=== PATIENT | female | born 1985 | race Caucasian/White ===

== ENCOUNTER 2022-02-28 12:09 | Emergency (ER) | payer MEDICAID, SELFPAY ==
[2022-02-28 12:12] VITALS: BP 149/91; PULSE 126; RESP 20; TEMP 36.8; O2SAT 100; BMI 18.1
[2022-02-28 12:18] VITALS: BP 126/82; PULSE 124; RESP 18; TEMP 37.1; O2SAT 100; BMI 19.1
--- NOTE | 2022-02-28 12:23 | ED_ITS ---
HPI - Psych General Chief Complaint: Psychiatric Symptoms Stated Complaint: Crisis Time Seen by Provider: 02/28/22 12:18 Source: patient Mode of arrival: ambulatory Limitations: no limitations History of Present Illness HPI Narrative: 37-year-old female with no known medical history here with reports of suicidal thoughts. Patient tells me she has a plan to starve herself. She has tried this before in the past. She tells me that she last ate and drank yesterday. She reports multiple recent triggers but is not forthcoming to tell me with these might be. No homicidal ideations. No auditory or visual hallucinations. No history of substance use. 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 This has stopped her from getting help previously Related Data Allergies Allergy/AdvReac Type Severity Reaction Status Date / Time peach Allergy Unknown SWELLING Verified 02/28/22 12:15 Review of Systems Review of Systems: Yes all other systems are reviewed and are negative Constitutional: Constitutional: Reports no additional constitutional complaints, Denies body ache(s), Denies chills, Denies fever(s), Denies headache(s) and Denies weakness Eyes: Eyes: Reports no additional eye complaints and Denies change in vision ENT: Reports system reviewed and no additional complaints, except as documented, Denies dizziness, Denies headache(s), Denies nasal congestion, Denies nasal discharge and Denies neck pain Cardiovascular: Cardiovascular: Reports no additional cardiovascular complaints, Denies chest pain, Denies leg edema and Denies dyspnea Respiratory: Respiratory: Reports no additional respiratory complaints, Denies cough and Denies dyspnea Gastrointestinal: Gastrointestinal: Reports no additional gastrointestinal complaints, Denies abdominal pain, Denies diarrhea, Denies nausea and Denies vomiting Genitourinary: Genitourinary: Reports no additional female genitourinary complaints and Denies urinary incontinence Musculoskeletal: Musculoskeletal: Reports no additional musculoskeletal complaints, Denies back pain, Denies arthralgias, Denies joint swelling, Denies neck pain, Denies numbness and Denies tingling Integumentary/Breasts: Skin/Breast: Reports system reviewed and no additional complaints, except as docu and Denies rash Neurologic: Reports system reviewed and no additional complaints, except as documented, Denies Abnormal speech present, Denies dizziness, Denies headache(s), Denies numbness, Denies tingling and Denies weakness Psychiatric: Psychiatric: Reports anxiety, Reports depression and Reports suicidal ideation [facility] Past Medical History Attestation statement: The following information was validated with the patient. Source: old records reviewed and nursing notes reviewed Medical History Depression Social History Social History Advance Directives: No Advance Directives Information Provided: No Healthcare Proxy: No Guardian: No Patient : No Physical Exam Vital Signs: Vital Signs: Last Vital Signs Temp 98.8 F 02/28/22 12:18 Pulse 124 H 02/28/22 12:18 Resp 18 02/28/22 12:18 BP 126/82 02/28/22 12:18 Pulse Ox 100 02/28/22 12:18 BMI result Body Mass Index 19.1 Const: Other: +anxious General: cooperative and alert Orientation/consciousness: patient oriented x3 Limitations: no limitations HEENT: Head: Yes normal to inspection Ears: hearing grossly normal bilaterally General nose exam: Normal external nose present Face and sinus: Yes normal facial exam Mouth: Normal oral and palatal mucosa present Throat: Yes posterior oropharynx normal Eyes: General: appearance normal, both eyes and all related structures Pupils: Equal, round and reactive pupils present Neck: Neck: Yes normal visual inspection Chest: Chest palpation & inspection: normal inspection of the chest Resp: Effort & Inspection: normal respiratory effort Auscultation: clear to auscultation bilaterally Cardio: Rate: regular rate Rhythm: regular rhythm Peripheral pulses: Peripheral pulses 2+ throughout GI: Inspection: Yes normal to inspection Palpation (GI): Soft to palpation and nontender Auscultation: normal bowel sounds Back/Spine/Pelvis: Thoracic/Lumbar Spine: thoracic and lumbar spine normal to inspection Skin: General skin exam: no rashes or lesions noted Neuro: General: patient oriented x3, no focal motor deficits and normal sensation to monofilament Cranial nerves: Yes CN's II-XII intact bilaterally and Yes Equal, round and reactive pupils present Cognition (Neuro): normal cognition Speech: No Abnormal speech present Gait exam (Neuro): Normal gait present Motor exam (neuro): 5/5 motor strength present throughout Extrem: General: Yes normal to inspection Course Course Course Narrative: 37-year-old female here with reports of suicidal thoughts, plan to starve himself. no concern for acute ingestion or trauma. Will obtain COVID screen, drug screen, PHN consult. Patient tells me she last ate and drank something yesterday so at this point I do not think that she needs any emergent labs. Reevaluation(s) Reevaluation #1: Seen by Care team (anna). Plan for outpatient f/u with partial hospitalization. I spoke to patient. She feels comfortable going home Time: 16:08 [facility] - Psych Medical Records Attestation: I reviewed the patient's medical records. Lab Data Attestation: I reviewed the patient's lab results. Labs: Lab Results 02/28/22 02/28/22 02/28/22 Range/Units 13:55 13:56 13:56 Urine Test NEGATIVE (NEGATIVE) Urine Opiates Screen Not Detected (Not Detect) Urine Fentanyl Screen Not Detected (Not Detect) Ur Barbiturates Screen Not Detected (Not Detect) Ur Phencyclidine Scrn Not Detected (Not Detect) Ur Amphetamines Screen Not Detected (Not Detect) U Benzodiazepines Scrn Not Detected (Not Detect) Urine Cocaine Screen Not Detected (Not Detect) U Marijuana (THC) Screen POSITIVE H (Not Detect) COVID-19 (BARBARA) Negative (Negative) COVID-19 Clin Com See Note Discharge Plan Discharge Clinical Impression: Acute anxiety, Depression Patient Disposition: Home, Self-Care Instructions: Depression (DC), Anxiety (ED) Additional Instructions: You were given a referral for partial hospitalization Please follow-up with outpatient resources provided Return if you do not feel safe at home Referrals: Physician,None [Primary Care Provider] - Interventions: ED Discharge Assessment Last Done: 02/28/22 16:13 Discharge Date/Time: 02/28/22 16:14
[2022-02-28 14:10] LABS: UPreg QC Valid YES; Urine Pregnancy NEGATIVE (NEGATIVE)
[2022-02-28 14:23] LABS: COVID-19 Test Negative (Negative); IDNOW Serial# 9DB6401D
[2022-02-28 14:25] LABS: Amphetamine Screen Urine Not Detected (Not Detect); Barbiturates, Urine Not Detected (Not Detect); Benzodiazepines Screen Urine Not Detected (Not Detect); Cannabinoid Screen Urine POSITIVE (Not Detect); Cocaine Screen Urine Not Detected (Not Detect); Fentanyl, urine Not Detected (Not Detect); Opiate Screen Urine Not Detected (Not Detect); Phencyclidine Screen Urine Not Detected (Not Detect)
== END 2022-02-28 16:14 | disposition home or self-care (01) ==
PROVIDERS: Nurse Practitioner Family; Emergency Provider Emergency Medicine
DX: F41.9 Anxiety disorder, unspecified (principal); F32.A Depression, unspecified; Z20.822 Contact with and (suspected) exposure to COVID-19
CPT/HCPCS: 80307; 81025; 87635; 99283; 99284